=== PATIENT | female | born 1955 ===

== ENCOUNTER 2016-11-03 08:30 | Day surgery (SDC) | payer MEDICAID ==
[2016-10-28 14:01] VITALS: BMI 32.4
[2016-11-03] MEDS ORDERED: Midazolam 2 MG/2 ML VIAL ONE (10:55)
[2016-11-03] MEDS ORDERED: Lidocaine 2% Inj (20ml) ONE (11:03)
--- NOTE | 2016-11-03 11:27 | CP.SDSHP ---
Same Day Surgery H & P - History Proposed Procedure: Port replacement. Pre-Op Diagnosis: Esophageal cancer s/p chemotherapy - Allergies Allergies: Allergies paclitaxel Adverse Reaction (Verified 05/15/15 08:10) RASH - Physical Exam Vital Signs: Vital Signs 11/03/16 09:05 Temperature 98.1 F Pulse Rate 93 H Respiratory 20 Rate Blood Pressure 124/85 O2 Sat by Pulse 96 Oximetry Mental Status: Alert & Oriented x3 - Impression Impression: Pt S/P completion chemotherapy referred for port removal. Pt. Evaluated Today:Candidate for Anesthesia & Procedure: Yes (ASA 3 Malampati 3) - Date & Time Date: 11/03/16 Time: 11:20 Short Stay Discharge - Short Stay Discharge Admitting Diagnosis/Reason for Visit: GASTRO-ESOPHAGEAL REFLUX DISEASE WITHOUT ESOPHAGIT Disposition: HOME/ ROUTINE
--- NOTE | 2016-11-03 11:31 | PCM.SURG1 ---
Surgeon's Initial Post Op Note - Surgeon's Notes Surgeon: Oliver Yusuf MD Life Trainer: [employer] Type of Anesthesia: IV Sedation Pre-Operative Diagnosis: Esophageal cancer Operative Findings: Left IJV port Post-Operative Diagnosis: Esophageal cancer Operation Performed: Left IJV port removal. Specimen/Specimens Removed: Port Estimated Blood Loss: EBL {In ML}: 4 Blood Products Given: N/A Drains Used: No Drains Post-Op Condition: Good Date of Surgery/Procedure: 11/03/16 Time of Surgery/Procedure: 11:25
[2016-11-03 14:05] VITALS: BP 114/64; PULSE 87; RESP 17; TEMP 97.3; O2SAT 99
== END 2016-11-03 13:55 | disposition home or self-care (01) ==
LOC: C.SPRAD 08:30
PROVIDERS: ATTEND Radiology Vascular & Interventional Radiology
DX: Z45.2 Encounter for adjustment and management of vascular access device (principal); Z92.21 Personal history of antineoplastic chemotherapy; Z85.01 Personal history of malignant neoplasm of esophagus
CPT/HCPCS: 36590; 94770; J1644; J2250